=== PATIENT | male | born 1965 | race Caucasian/White ===

== ENCOUNTER 2021-12-09 09:08 | Inpatient (IN) ==
[~2021-12-09 09:08] MED LIST: CLORAZEPATE 3.75 MG TABLET PO PRN; DEXTROSE 10% 250 ML BAG IV PRN; GLUCAGON 1 MG VIAL IM PRN; MORPHINE 2 MG/1 ML SYRINGE IV PRN; NITROGLYCERIN SL 0.4 MG TABLET SL PRN
[2021-12-09 09:40] LABS: Basophils % 0.5 % (0.0-0.8); Eosinophils # 0.2 10*3/uL (0.0-0.87); Eosinophils % 3.4 % (0.00-10.9); Hematocrit 35.5 VOL% (42.0-52.0); Hemoglobin 11.8 GM/DL (14.0-18.0); Immature Granulocytes % 0.2 %; Immature Granulocytes Absolute 0.01 #; Lymphocytes % 31.2 % (21.2-54.2); Mean Corpuscular HGB Conc 33.2 GM/DL (32-36); Mean Corpuscular Volume 98.6 FL (87-102); Mean Platelet Volume 9.2 FL (9.6-12.0); Monocytes # 0.6 10*3/uL (0.11-0.8); Monocytes % 9.2 % (1.7-12.7); Neutrophils % 55.5 % (38.7-73.9); Platelet Count 290 T/CUMM (130-400); Red Cell Distribution Width 13.1 % (9.3-17.3); White Blood Count 6.4 T/CUMM (4-12)
[2021-12-09 10:08] LABS: Alanine Aminotransferase 49 U/L (16-61); Albumin 3.6 G/DL (3.4-5.0); Alkaline Phosphatase 72 U/L (45-117); Aspartate Amino Transferase 21 U/L (0-37); Bilirubin,Total < 0.39 MG/DL (0.20-1.00); Blood Urea Nitrogen 11 MG/DL (7-18); Calcium 9.6 MG/DL (8.5-10.1); Carbon Dioxide 31 MMOL/L (21-32); Chloride 106 MMOL/L (98-107); Glucose 82 MG/DL (74-106); Osmolality,Calculated 276.4 MOS/KG (273-304); Sodium 140 MMOL/L (136-145); Total Protein 7.6 G/DL (6.4-8.2)
[2021-12-09] MEDS ORDERED: oxyCODONE/ACETAMINOPHEN 5-325 MG TABLET PO PRN (10:30)
[2021-12-09] MEDS: CHLORHEXIDINE 0.12% ORAL RINSE 60 ML BOTTLE SWISH/SPIT SCH ×2 (10:31→20:08)
[2021-12-09] MEDS: CHLORHEXIDINE 4% SOLN 118 ML BOTTLE TOP SCH ×4 (11:29→21:13)
[2021-12-09] MEDS: SODIUM CHLORIDE 0.9% 1,000 ML IV SCH (11:30)
[2021-12-10] MEDS: CHLORHEXIDINE 4% SOLN 118 ML BOTTLE TOP SCH (04:40)
[2021-12-10] MEDS ORDERED: PAPAVERINE 60 MG/2 ML VIAL ONE (04:59)
[2021-12-10] MEDS ORDERED: VANCOMYCIN 1,000 MG VIAL ONE (05:00)
[2021-12-10] MEDS ORDERED: CEFUROXIME INJ 1,500 MG in SODIUM CHLORIDE 0.9% 100 ML IV ONE (05:00)
[2021-12-10] MEDS ORDERED: VANCOMYCIN 500 MG VIAL ONE (05:00)
[2021-12-10] MEDS ORDERED: FAMOTIDINE 20 MG TABLET PO ONE (05:30)
[2021-12-10] MEDS ORDERED: DIAZEPAM 5 MG TABLET PO ONE (05:30)
[2021-12-10] MEDS ORDERED: MIDAZOLAM 10 MG/2 ML VIAL ONE ×3 (06:09)
[2021-12-10] MEDS ORDERED: AMINOCAPROIC ACID 5,000 MG/20 ML VIAL ONE (06:09)
[2021-12-10] MEDS ORDERED: ETOMIDATE 40 MG/20 ML VIAL IV ONE (06:09)
[2021-12-10] MEDS ORDERED: LIDOCAINE 2% 5 ML VIAL ONE ×2 (06:09→10:44)
[2021-12-10] MEDS ORDERED: LACTATED RINGERS 1,000 ML IV ONE (06:10)
[2021-12-10] MEDS ORDERED: MINERAL OIL/PETROLATUM OPH OINT 3.5 GM TUBE ONE (06:10)
[2021-12-10] MEDS ORDERED: HEPARIN/NACL 0.9% 2 UNITS/ML 1,000 UNIT/500 ML BAG IV ONE (06:10)
[2021-12-10] MEDS ORDERED: VECURONIUM 10 MG VIAL IV ONE (06:10)
[2021-12-10] MEDS ORDERED: NITROGLYCERIN DRIP 50 MG/250 ML BOTTLE IV ONE (06:10)
[2021-12-10] MEDS ORDERED: SODIUM CHLORIDE 0.9% 1,000 ML IV ONE (06:10)
[2021-12-10] MEDS ORDERED: CALCIUM CHLORIDE 1,000 MG/10 ML VIAL IV ONE (06:10)
[2021-12-10] MEDS ORDERED: SEVOFLURANE 1 UNIT/15 MINUTE INH ONE (06:10)
[2021-12-10] MEDS ORDERED: SODIUM CHLORIDE 0.9% 250 ML IV ONE ×2 (06:10→06:11)
[2021-12-10] MEDS ORDERED: SUFentanil 250 MCG/5 ML AMP ONE (06:10)
[2021-12-10] MEDS ORDERED: PHENYLEPHRINE 10 MG/1 ML VIAL IV ONE (06:11)
[2021-12-10] MEDS ORDERED: ePHEDrine 50 MG/ML VIAL ONE (06:11)
[2021-12-10 07:30] LABS: ABG Base Excess 4.6 MMOL/L (-2.5-2.5); ABG HCO3 28.6 MMOL/L (20-26); ABG PCO2 46.1 MM HG (35-48); ABG PH 7.418 (7.35-7.45); ABG TCO2 26.8 MMOL/L (23-27); Glucose Heart Surgery 109 MG/DL (74-106); Hematocrit Heart Surgery 32.7 PERCENT (42-52); Hemoglobin Heart Surgery 10.6 G/DL (14.0-18.0); Ionized Calcium Arterial 1.18 MMOL/L (1.21-1.46); PCO2 Patient Temp Arterial 46.1 MMHG; PH Patient Temp Arterial 7.418; Patient Temperature 37 CELCIUS; Potassium Heart/CVR 3.9 MMOL/L (3.5-5.1); Sodium Heart/CVR 141 MMOL/L (135-145)
[2021-12-10 07:31] LABS: Bilirubin,Urine Negative (Negative); Blood, Urine Trace mg/dL (Negative); Glucose,Urine (UA) Negative (Negative); Ketones,Urine Negative (Negative); Nitrite,Urine Negative (Negative); Protein,Urine Negative (Negative); Urine Appearance Clear (Clear); Urine Color Yellow (Yellow); Urine Urobilinogen 0.2 eU/dL (<2.0); Urine pH 7.5 (4.5-8.0)
[2021-12-10 07:33] LABS: RBC,Urine 5 /HPF (0-4)
[2021-12-10] MEDS ORDERED: PHENYLEPHRINE DRIP 40 MG/250 ML PREMIX IV ONE (08:43)
[2021-12-10] MEDS ORDERED: NITROPRUSSIDE 50 MG/2 ML VIAL ONE ×2 (08:43→10:47)
[2021-12-10 08:57] LABS: Hematocrit Heart Surgery 19.6 PERCENT (42-52); PCO2 Patient Temp Venous 45.2 MM HG; PH Patient Temp Venous 7.407; PO2 Patient Temp Venous 43.8 MM HG; Potassium Heart/CVR 4.4 MMOL/L (3.5-5.1); VBG Base Excess 3.7 MEQ/L (0-4); VBG HCO3 27.6 MEQ/L (24-28); VBG Oxygen Saturation 80.7 %; VBG PCO2 49.8 MMHG (41-51); VBG PH 7.378; VBG PO2 50.2 MMHG (17-40); VBG Total CO2 28.1 MMOL/L
[2021-12-10 08:58] LABS: Hemoglobin Heart Surgery 6.2 G/DL (14.0-18.0)
[2021-12-10 09:26] LABS: Hematocrit Heart Surgery 22.1 PERCENT (42-52); Hemoglobin Heart Surgery 7.1 G/DL (14.0-18.0); PCO2 Patient Temp Venous 38.7 MM HG; PH Patient Temp Venous 7.459; PO2 Patient Temp Venous 34.8 MM HG; Potassium Heart/CVR 4.5 MMOL/L (3.5-5.1); VBG Base Excess 3.7 MEQ/L (0-4); VBG HCO3 27.5 MEQ/L (24-28); VBG Oxygen Saturation 74.5 %; VBG PCO2 44.7 MMHG (41-51); VBG PH 7.415; VBG PO2 42.9 MMHG (17-40); VBG Total CO2 27.2 MMOL/L
[2021-12-10] MEDS ORDERED: ESMOLOL 100 MG/10 ML VIAL IV ONE (09:46)
[2021-12-10 09:57] LABS: Hematocrit Heart Surgery 23.5 PERCENT (42-52); Hemoglobin Heart Surgery 7.5 G/DL (14.0-18.0); PCO2 Patient Temp Venous 38.7 MM HG; PH Patient Temp Venous 7.451; PO2 Patient Temp Venous 37.8 MM HG; Potassium Heart/CVR 4.9 MMOL/L (3.5-5.1); VBG Base Excess 2.9 MEQ/L (0-4); VBG HCO3 26.7 MEQ/L (24-28); VBG Oxygen Saturation 72.6 %; VBG PCO2 40.6 MMHG (41-51); VBG PH 7.436; VBG PO2 40.6 MMHG (17-40); VBG Total CO2 25.7 MMOL/L
[2021-12-10 10:32] LABS: ABG Base Excess 1.6 MMOL/L (-2.5-2.5); ABG HCO3 25.9 MMOL/L (20-26); ABG PCO2 43.3 MM HG (35-48); ABG PH 7.397 (7.35-7.45); ABG TCO2 24.8 MMOL/L (23-27); Glucose Heart Surgery 211 MG/DL (74-106); Hematocrit Heart Surgery 25.7 PERCENT (42-52); Hemoglobin Heart Surgery 8.3 G/DL (14.0-18.0); Ionized Calcium Arterial 1.25 MMOL/L (1.21-1.46); PCO2 Patient Temp Arterial 43.3 MMHG; PH Patient Temp Arterial 7.397; Patient Temperature 37 CELCIUS; Potassium Heart/CVR 4.3 MMOL/L (3.5-5.1); Sodium Heart/CVR 131 MMOL/L (135-145)
[2021-12-10] MEDS ORDERED: ALBUMIN 25% 25 GM/100 ML VIAL IV ONE (10:44)
[2021-12-10] MEDS ORDERED: methylPREDNISolone SOD SUC 1,000 MG/8 ML VIAL ONE (10:44)
[2021-12-10] MEDS ORDERED: DEXTROSE 5% KCL 20 MEQ 20 MEQ/1,000 ML BAG IV ONE (10:44)
[2021-12-10] MEDS ORDERED: MAGNESIUM SULFATE 5 GM/10 ML VIAL IV ONE (10:44)
[2021-12-10] MEDS ORDERED: MANNITOL 12.5 GM/50 ML VIAL IV ONE (10:45)
[2021-12-10] MEDS ORDERED: PROTAMINE SULFATE 250 MG/25 ML VIAL IV ONE (10:45)
[2021-12-10] MEDS ORDERED: HEPARIN 10,000 UNIT/10 ML VIAL ONE (10:45)
[2021-12-10] MEDS ORDERED: PROTAMINE SULFATE 50 MG/5 ML VIAL IV ONE (10:46)
[2021-12-10] MEDS ORDERED: FUROSEMIDE 20 MG/2 ML VIAL ONE (10:46)
[2021-12-10] MEDS ORDERED: SODIUM BICARBONATE 50 MEQ/50 ML VIAL IV ONE (10:46)
[2021-12-10] MEDS ORDERED: THROMBIN TOPICAL (RECOMBINANT) 5,000 UNIT VIAL TOP ONE (11:14)
[2021-12-10] MEDS ORDERED: ONDANSETRON 4 MG/2 ML VIAL IV PRN (11:15)
[2021-12-10] MEDS ORDERED: MAGNESIUM SULF RIDER 2 GM/50 ML PREMIX IV PRN (11:15)
[2021-12-10] MEDS ORDERED: DEXTROSE 10% 250 ML BAG IV PRN ×2 (11:15)
[2021-12-10] MEDS ORDERED: SODIUM CHLORIDE 0.45% 1,000 ML IV SCH ×2 (11:15)
[2021-12-10] MEDS ORDERED: MIDAZOLAM 2 MG/2 ML VIAL IV PRN (11:15)
[2021-12-10] MEDS ORDERED: VECURONIUM 10 MG VIAL IV PRN ×2 (11:15)
[2021-12-10] MEDS ORDERED: ACETAMINOPHEN 650 MG SUPP RECTAL PRN (11:15)
[2021-12-10] MEDS ORDERED: CALCIUM CHLORIDE 1,000 MG/10 ML SYRINGE IV PRN (11:15)
[2021-12-10] MEDS ORDERED: POTASSIUM CHLORIDE RIDER 20 MEQ/100 ML PREMIX IV PRN (11:15)
[2021-12-10] MEDS ORDERED: POTASSIUM CHLORIDE RIDER 10 MEQ/100 ML PREMIX IV PRN (11:15)
[2021-12-10] MEDS ORDERED: NITROPRUSSIDE 100 MG in DEXTROSE 5% 250 ML IV PRN (11:15)
[2021-12-10] MEDS ORDERED: MAGNESIUM SULF RIDER 4 GM/100 ML PREMIX IV PRN (11:15)
[2021-12-10] MEDS ORDERED: INSULIN REGULAR 100 UNIT/ML IV ONE (11:15)
[2021-12-10] MEDS ORDERED: MIDAZOLAM 10 MG/2 ML VIAL IV PRN ×2 (11:15→13:54)
[2021-12-10] MEDS ORDERED: PHENYLEPHRINE DRIP 40 MG/250 ML PREMIX IV PRN (11:15)
[2021-12-10] MEDS ORDERED: CHLORHEXIDINE 4% SOLN 118 ML BOTTLE TOP PRN (11:15)
[2021-12-10] MEDS ORDERED: LACTATED RINGERS 250 ML IV PRN (11:15)
[2021-12-10] MEDS ORDERED: INSULIN REGULAR DRIP 100 ML IV SCH (11:15)
[2021-12-10] MEDS ORDERED: ALBUMIN 5% 12.5 GM/250 ML VIAL IV PRN (11:15)
[2021-12-10] MEDS ORDERED: INSULIN REGULAR 100 UNIT/ML IV PRN (11:15)
[2021-12-10 12:12] LABS: Basophils % 0.2 % (0.0-0.8); Eosinophils # 0.1 10*3/uL (0.0-0.87); Eosinophils % 0.5 % (0.00-10.9); Hemoglobin 9.8 GM/DL (14.0-18.0); Immature Granulocytes % 0.7 %; Immature Granulocytes Absolute 0.09 #; Lymphocytes # 1.3 10*3/uL (1.4-4.0); Mean Corpuscular HGB Conc 33.8 GM/DL (32-36); Mean Platelet Volume 9.5 FL (9.6-12.0); Monocytes # 0.7 10*3/uL (0.11-0.8); Monocytes % 5.1 % (1.7-12.7); Neutrophils % 83.5 % (38.7-73.9); Platelet Count 251 T/CUMM (130-400); Red Blood Count 2.99 MC/CUMM (3.8-5.5); Red Cell Distribution Width 12.9 % (9.3-17.3); White Blood Count 12.8 T/CUMM (4-12)
[2021-12-10 12:14] LABS: ABG Base Excess 2.4 MMOL/L (-2.5-2.5); ABG HCO3 26.6 MMOL/L (20-26); ABG PCO2 42.4 MM HG (35-48); ABG PH 7.415 (7.35-7.45); ABG TCO2 24.8 MMOL/L (23-27); Glucose Heart Surgery 175 MG/DL (74-106); Hemoglobin Heart Surgery 9.7 G/DL (14.0-18.0); Potassium Heart/CVR 3.8 MMOL/L (3.5-5.1)
[2021-12-10 12:23] LABS: INR 1.1; PT Patient Result 11.8 SECS (10.5-12.0)
[2021-12-10] MEDS ORDERED: GLUCAGON 1 MG VIAL IM PRN (12:27)
[2021-12-10 12:35] LABS: CKMB % 6.08 %
[2021-12-10 12:37] LABS: Albumin 3.4 G/DL (3.4-5.0); Bilirubin,Total 0.6 MG/DL (0.20-1.00); Calcium 9.2 MG/DL (8.5-10.1); Osmolality,Calculated 274.1 MOS/KG (273-304); Potassium 3.8 MMOL/L (3.5-5.1); Total Protein 6.3 G/DL (6.4-8.2)
[2021-12-10 12:42] LABS: High Sensitive Troponin I* 2531.1 ng/L (0-78)
[2021-12-10] MEDS: LACTATED RINGERS 1,000 ML IV PRN ×3 (12:45→17:35)
[2021-12-10] MEDS: SODIUM CHLORIDE 0.9% 1,000 ML IV SCH (12:47)
[2021-12-10] MEDS: CHLORHEXIDINE 0.12% ORAL RINSE 60 ML BOTTLE SWISH/SPIT SCH ×2 (12:47→21:33)
[2021-12-10] MEDS ORDERED: DEXMEDETOMIDINE 200 MCG in SODIUM CHLORIDE 0.9% 48 ML IV PRN (12:58)
[2021-12-10 13:21] LABS: ABG Base Excess 2.4 MMOL/L (-2.5-2.5); ABG HCO3 26.6 MMOL/L (20-26); ABG Oxygen Saturation 99.9 % (95-100); ABG PCO2 42.5 MM HG (35-48); ABG PH 7.414 (7.35-7.45); Glucose Heart Surgery 169 MG/DL (74-106); Hematocrit Heart Surgery 28.2 PERCENT (42-52); Hemoglobin Heart Surgery 9.1 G/DL (14.0-18.0); Potassium Heart/CVR 4.2 MMOL/L (3.5-5.1)
[2021-12-10] MEDS: INSULIN REGULAR 100 UNIT/ML SUBCUT SCH ×3 (14:47→22:22)
[2021-12-10 15:16] LABS: ABG Base Excess 1.9 MMOL/L (-2.5-2.5); ABG HCO3 26.1 MMOL/L (20-26); ABG PCO2 43.8 MM HG (35-48); ABG PH 7.398 (7.35-7.45); ABG TCO2 24.6 MMOL/L (23-27); Glucose Heart Surgery 189 MG/DL (74-106); Hematocrit Heart Surgery 30.8 PERCENT (42-52); Potassium Heart/CVR 4.1 MMOL/L (3.5-5.1)
[2021-12-10] MEDS: MORPHINE 10 MG/1 ML VIAL IV PRN ×2 (16:58→19:44)
[2021-12-10 17:43] LABS: ABG Base Excess 0.6 MMOL/L (-2.5-2.5); ABG Oxygen Saturation 98.7 % (95-100); ABG PCO2 40.6 MM HG (35-48); ABG PH 7.404 (7.35-7.45); ABG TCO2 23.3 MMOL/L (23-27); Glucose Heart Surgery 191 MG/DL (74-106); Hemoglobin Heart Surgery 9.4 G/DL (14.0-18.0); Potassium Heart/CVR 4.3 MMOL/L (3.5-5.1)
[2021-12-10] MEDS: DEXMEDETOMIDINE 400 MCG in SODIUM CHLORIDE 0.9% 96 ML IV PRN ×2 (17:45→23:57)
[2021-12-10] MEDS: CEFUROXIME INJ 1,500 MG in SODIUM CHLORIDE 0.9% 100 ML IV SCH (18:39)
[2021-12-10 19:17] LABS: ABG Base Excess 0.4 MMOL/L (-2.5-2.5); ABG HCO3 24.8 MMOL/L (20-26); ABG Oxygen Saturation 98.4 % (95-100); ABG PCO2 40.1 MM HG (35-48); ABG PH 7.404 (7.35-7.45); ABG TCO2 22.9 MMOL/L (23-27); Glucose Heart Surgery 180 MG/DL (74-106); Hematocrit Heart Surgery 29.8 PERCENT (42-52); Hemoglobin Heart Surgery 9.6 G/DL (14.0-18.0); Potassium Heart/CVR 4.5 MMOL/L (3.5-5.1)
[2021-12-10 19:39] LABS: CKMB % 4.74 %
[2021-12-10] MEDS ORDERED: HYDROmorphone 1 MG/1 ML SYRINGE IV PRN (21:12)
[2021-12-10] MEDS ORDERED: FUROSEMIDE 40 MG/4 ML VIAL IV ONE (21:13)
[2021-12-10 22:04] LABS: ABG Base Excess -0.2 MMOL/L (-2.5-2.5); ABG HCO3 24.3 MMOL/L (20-26); ABG Oxygen Saturation 98.3 % (95-100); ABG PCO2 41.8 MM HG (35-48); ABG PH 7.383 (7.35-7.45); ABG TCO2 22.9 MMOL/L (23-27); Glucose Heart Surgery 164 MG/DL (74-106); Potassium Heart/CVR 4.2 MMOL/L (3.5-5.1)
[2021-12-11 00:02] LABS: ABG HCO3 25.3 MMOL/L (20-26); ABG Oxygen Saturation 97.8 % (95-100); ABG PCO2 41.5 MM HG (35-48); ABG PH 7.402 (7.35-7.45); ABG TCO2 23.4 MMOL/L (23-27); Glucose Heart Surgery 163 MG/DL (74-106); Hematocrit Heart Surgery 31.8 PERCENT (42-52); Hemoglobin Heart Surgery 10.3 G/DL (14.0-18.0); Potassium Heart/CVR 4.1 MMOL/L (3.5-5.1)
[2021-12-11 01:21] LABS: ABG Base Excess 1.2 MMOL/L (-2.5-2.5); ABG HCO3 25.5 MMOL/L (20-26); ABG PCO2 40.9 MM HG (35-48); ABG PO2 91.3 MM HG (80-95); ABG TCO2 23.5 MMOL/L (23-27); Glucose Heart Surgery 159 MG/DL (74-106); Hematocrit Heart Surgery 31.5 PERCENT (42-52); Hemoglobin Heart Surgery 10.2 G/DL (14.0-18.0); Potassium Heart/CVR 4.2 MMOL/L (3.5-5.1)
[2021-12-11] MEDS: INSULIN REGULAR 100 UNIT/ML SUBCUT SCH ×6 (02:11→23:35)
[2021-12-11 02:20] LABS: ABG Base Excess 0.9 MMOL/L (-2.5-2.5); ABG HCO3 25.2 MMOL/L (20-26); ABG Oxygen Saturation 95.4 % (95-100); ABG PCO2 39.9 MM HG (35-48); ABG PH 7.413 (7.35-7.45); ABG PO2 78.8 MM HG (80-95); ABG TCO2 23.1 MMOL/L (23-27); Glucose Heart Surgery 152 MG/DL (74-106); Hematocrit Heart Surgery 31.4 PERCENT (42-52); Hemoglobin Heart Surgery 10.2 G/DL (14.0-18.0); Potassium Heart/CVR 4.1 MMOL/L (3.5-5.1)
[2021-12-11 03:55] LABS: ABG Base Excess 0.9 MMOL/L (-2.5-2.5); ABG HCO3 25.2 MMOL/L (20-26); ABG Oxygen Saturation 95.6 % (95-100); ABG PCO2 40.6 MM HG (35-48); ABG PH 7.407 (7.35-7.45); ABG PO2 80.1 MM HG (80-95); ABG TCO2 23.4 MMOL/L (23-27); Glucose Heart Surgery 140 MG/DL (74-106); Hematocrit Heart Surgery 29.7 PERCENT (42-52); Hemoglobin Heart Surgery 9.6 G/DL (14.0-18.0)
[2021-12-11 03:59] LABS: Basophils % 0.1 % (0.0-0.8); Hematocrit 28.1 VOL% (42.0-52.0); Hemoglobin 9.5 GM/DL (14.0-18.0); Immature Granulocytes % 0.7 %; Immature Granulocytes Absolute 0.12 #; Lymphocytes # 0.9 10*3/uL (1.4-4.0); Lymphocytes % 5.7 % (21.2-54.2); Mean Corpuscular HGB Conc 33.8 GM/DL (32-36); Mean Corpuscular Volume 94.9 FL (87-102); Mean Platelet Volume 9.8 FL (9.6-12.0); Monocytes # 0.6 10*3/uL (0.11-0.8); Monocytes % 3.7 % (1.7-12.7); Neutrophils % 89.8 % (38.7-73.9); Platelet Count 211 T/CUMM (130-400); Red Blood Count 2.96 MC/CUMM (3.8-5.5); Red Cell Distribution Width 13.9 % (9.3-17.3); White Blood Count 16.2 T/CUMM (4-12)
[2021-12-11 04:23] LABS: CKMB % 2.75 %; High Sensitive Troponin I* 5587.6 ng/L (0-78)
[2021-12-11 04:31] LABS: Albumin 2.9 G/DL (3.4-5.0); Bilirubin,Direct 0.12 MG/DL (0.0-0.20); Bilirubin,Total 0.5 MG/DL (0.20-1.00); Calcium 7.9 MG/DL (8.5-10.1); Osmolality,Calculated 281.5 MOS/KG (273-304); Total Protein 5.8 G/DL (6.4-8.2)
[2021-12-11] MEDS: CEFUROXIME INJ 1,500 MG in SODIUM CHLORIDE 0.9% 100 ML IV SCH ×2 (06:32→20:41)
[2021-12-11] MEDS: MORPHINE 10 MG/1 ML VIAL IV PRN (07:30)
[2021-12-11] MEDS ORDERED: traZODone 50 MG TABLET PO SCH (09:00)
[2021-12-11] MEDS ORDERED: TADALAFIL 10 MG PO SCH (09:26)
[2021-12-11] MEDS ORDERED: SODIUM CHLOR 0.45% KCL 20 MEQ 20 MEQ/1,000 ML BAG IV SCH (09:26)
[2021-12-11] MEDS ORDERED: ALUMINUM/MAGNES/SIMETH MAX STR 30 ML UDCUP PO PRN (09:26)
[2021-12-11] MEDS ORDERED: MAGNESIUM SULF RIDER 2 GM/50 ML PREMIX IV PRN (09:26)
[2021-12-11] MEDS ORDERED: ACETAMINOPHEN 325 MG TABLET PO PRN (09:26)
[2021-12-11] MEDS ORDERED: MAGNESIUM HYDROXIDE SUSP 30 ML UDCUP PO PRN (09:26)
[2021-12-11] MEDS ORDERED: ONDANSETRON 4 MG/2 ML VIAL IV PRN (09:26)
[2021-12-11] MEDS ORDERED: MAGNESIUM SULF RIDER 4 GM/100 ML PREMIX IV PRN (09:26)
[2021-12-11] MEDS ORDERED: GLUCAGON 1 MG VIAL IM PRN (09:26)
[2021-12-11] MEDS ORDERED: LIDOCAINE 1.8% TOP SCH (09:26)
[2021-12-11] MEDS ORDERED: DEXTROSE 10% 250 ML BAG IV PRN (09:32)
[2021-12-11] MEDS: FERROUS SULFATE 325 MG TABLET PO SCH (10:00)
[2021-12-11] MEDS: DOCUSATE SODIUM 100 MG CAPSULE PO SCH (10:00)
[2021-12-11] MEDS: ASPIRIN EC 81 MG TABLET PO SCH (10:00)
[2021-12-11] MEDS: oxyCODONE/ACETAMINOPHEN 5-325 MG TABLET PO PRN ×2 (10:01→20:41)
[2021-12-11] MEDS: PANTOPRAZOLE 40 MG TABLET PO SCH (10:02)
[2021-12-11] MEDS ORDERED: oxyCODONE/ACETAMINOPHEN 5-325 MG TABLET PO ONE (12:24)
[2021-12-11] MEDS: CHLORHEXIDINE 0.12% ORAL RINSE 60 ML BOTTLE SWISH/SPIT SCH ×3 (12:38→20:42)
[2021-12-11] MEDS ORDERED: LIDOCAINE 5% PATCH TRANSDERM PRN (13:10)
[2021-12-11 13:26] LABS: CKMB % 1.56 %; High Sensitive Troponin I* 5251.8 ng/L (0-78)
[2021-12-11] MEDS: ASCORBIC ACID 500 MG TABLET PO SCH ×2 (15:09→20:41)
[2021-12-11] MEDS: MORPHINE 2 MG/1 ML SYRINGE IV PRN ×2 (16:30→21:50)
[2021-12-11] MEDS: ROSUVASTATIN 20 MG TABLET PO SCH (20:41)
[2021-12-12] MEDS: oxyCODONE/ACETAMINOPHEN 5-325 MG TABLET PO PRN ×4 (04:10→20:57)
[2021-12-12 04:48] LABS: Basophils % 0.1 % (0.0-0.8); Hematocrit 27.1 VOL% (42.0-52.0); Immature Granulocytes % 0.9 %; Immature Granulocytes Absolute 0.21 #; Lymphocytes # 1.1 10*3/uL (1.4-4.0); Lymphocytes % 4.9 % (21.2-54.2); Mean Corpuscular HGB Conc 33.2 GM/DL (32-36); Mean Corpuscular Volume 96.8 FL (87-102); Monocytes # 1.7 10*3/uL (0.11-0.8); Monocytes % 7.5 % (1.7-12.7); Neutrophils % 86.6 % (38.7-73.9); Platelet Count 210 T/CUMM (130-400); White Blood Count 22.3 T/CUMM (4-12)
[2021-12-12] MEDS: MORPHINE 2 MG/1 ML SYRINGE IV PRN (05:00)
[2021-12-12 05:09] LABS: Lymphocytes 6 % (20-55); Platelet Estimate Adequate; Total Cells Counted 100
[2021-12-12 05:10] LABS: Alanine Aminotransferase 31 U/L (16-61); Alkaline Phosphatase 44 U/L (45-117); Aspartate Amino Transferase 37 U/L (0-37); Bilirubin,Direct 0.12 MG/DL (0.0-0.20); Bilirubin,Indirect 0.3 MG/DL (0.0-1.0); Bilirubin,Total 0.4 MG/DL (0.20-1.00); Bilirubin,Total < 0.39 MG/DL (0.20-1.00); CKMB % 0.83 %; Calcium 8.1 MG/DL (8.5-10.1); Osmolality,Calculated 282.7 MOS/KG (273-304); Potassium 4.2 MMOL/L (3.5-5.1); Total Protein 6.1 G/DL (6.4-8.2)
[2021-12-12] MEDS: INSULIN REGULAR 100 UNIT/ML SUBCUT SCH ×6 (05:37→21:05)
[2021-12-12] MEDS ORDERED: FUROSEMIDE 40 MG/4 ML VIAL IV ONE (06:00)
[2021-12-12] MEDS ORDERED: amLODIPine 5 MG TABLET PO SCH (09:00)
[2021-12-12] MEDS: ASPIRIN EC 81 MG TABLET PO SCH (09:40)
[2021-12-12] MEDS: DOCUSATE SODIUM 100 MG CAPSULE PO SCH (09:40)
[2021-12-12] MEDS: ASCORBIC ACID 500 MG TABLET PO SCH ×2 (09:40→20:58)
[2021-12-12] MEDS: METOPROLOL TARTRATE 25 MG TABLET PO SCH ×2 (09:40→20:58)
[2021-12-12] MEDS: FERROUS SULFATE 325 MG TABLET PO SCH (09:40)
[2021-12-12] MEDS: POTASSIUM CHLORIDE 20 MEQ TABLET PO PRN (09:40)
[2021-12-12] MEDS: PANTOPRAZOLE 40 MG TABLET PO SCH (09:40)
[2021-12-12] MEDS: CHLORHEXIDINE 0.12% ORAL RINSE 60 ML BOTTLE SWISH/SPIT SCH ×2 (10:45→22:11)
[2021-12-12] MEDS: ROSUVASTATIN 20 MG TABLET PO SCH (20:58)
[2021-12-12] MEDS: ZALEPLON 5 MG CAPSULE PO PRN (20:58)
[2021-12-13] MEDS: oxyCODONE/ACETAMINOPHEN 5-325 MG TABLET PO PRN ×3 (06:09→21:31)
[2021-12-13 07:01] LABS: Basophils % 0.1 % (0.0-0.8); Eosinophils % 0.1 % (0.00-10.9); Hematocrit 26.9 VOL% (42.0-52.0); Hemoglobin 8.7 GM/DL (14.0-18.0); Immature Granulocytes % 0.4 %; Immature Granulocytes Absolute 0.05 #; Lymphocytes # 2.5 10*3/uL (1.4-4.0); Lymphocytes % 20.4 % (21.2-54.2); Mean Corpuscular HGB Conc 32.3 GM/DL (32-36); Mean Corpuscular Volume 98.2 FL (87-102); Mean Platelet Volume 10.3 FL (9.6-12.0); Monocytes # 1.2 10*3/uL (0.11-0.8); Monocytes % 9.4 % (1.7-12.7); Neutrophils % 69.6 % (38.7-73.9); Platelet Count 191 T/CUMM (130-400); Red Blood Count 2.74 MC/CUMM (3.8-5.5); Red Cell Distribution Width 14.1 % (9.3-17.3); White Blood Count 12.4 T/CUMM (4-12)
[2021-12-13 07:24] LABS: Albumin 2.7 G/DL (3.4-5.0); Bilirubin,Direct 0.1 MG/DL (0.0-0.20); Bilirubin,Total 0.4 MG/DL (0.20-1.00); Osmolality,Calculated 285.3 MOS/KG (273-304); Potassium 3.7 MMOL/L (3.5-5.1); Total Protein 5.6 G/DL (6.4-8.2)
[2021-12-13 07:28] LABS: Alanine Aminotransferase 27 U/L (16-61); Albumin 2.6 G/DL (3.4-5.0); Alkaline Phosphatase 45 U/L (45-117); Aspartate Amino Transferase 26 U/L (0-37); Bilirubin,Indirect 0.3 MG/DL (0.0-1.0); Total Protein 6.1 G/DL (6.4-8.2)
[2021-12-13 07:32] LABS: Calcium 8.1 MG/DL (8.5-10.1); Osmolality,Calculated 285.3 MOS/KG (273-304); Potassium 3.6 MMOL/L (3.5-5.1)
[2021-12-13] MEDS: INSULIN REGULAR 100 UNIT/ML SUBCUT SCH (07:47)
[2021-12-13] MEDS: DOCUSATE SODIUM 100 MG CAPSULE PO SCH (09:34)
[2021-12-13] MEDS: PANTOPRAZOLE 40 MG TABLET PO SCH (09:34)
[2021-12-13] MEDS: FERROUS SULFATE 325 MG TABLET PO SCH (09:34)
[2021-12-13] MEDS: ASPIRIN EC 81 MG TABLET PO SCH (09:34)
[2021-12-13] MEDS: CHLORHEXIDINE 0.12% ORAL RINSE 60 ML BOTTLE SWISH/SPIT SCH ×2 (09:34→21:32)
[2021-12-13] MEDS: METOPROLOL TARTRATE 25 MG TABLET PO SCH ×2 (09:34→21:31)
[2021-12-13] MEDS: POTASSIUM CHLORIDE 20 MEQ TABLET PO PRN (09:34)
[2021-12-13] MEDS: ASCORBIC ACID 500 MG TABLET PO SCH ×2 (09:34→21:31)
[2021-12-13] MEDS ORDERED: LACTULOSE 20 GM/30 ML UDCUP PO PRN (17:02)
[2021-12-13] MEDS: ROSUVASTATIN 20 MG TABLET PO SCH (21:31)
[2021-12-13] MEDS: ZALEPLON 5 MG CAPSULE PO PRN (21:31)
[2021-12-14] MEDS: oxyCODONE/ACETAMINOPHEN 5-325 MG TABLET PO PRN ×2 (03:52→08:24)
[2021-12-14 05:52] LABS: Basophils % 0.2 % (0.0-0.8); Eosinophils % 0.2 % (0.00-10.9); Hematocrit 27.3 VOL% (42.0-52.0); Hemoglobin 8.8 GM/DL (14.0-18.0); Immature Granulocytes % 0.3 %; Immature Granulocytes Absolute 0.03 #; Lymphocytes % 19.7 % (21.2-54.2); Mean Corpuscular HGB Conc 32.2 GM/DL (32-36); Mean Corpuscular Volume 99.3 FL (87-102); Mean Platelet Volume 10.1 FL (9.6-12.0); Monocytes # 0.8 10*3/uL (0.11-0.8); Monocytes % 8.2 % (1.7-12.7); Neutrophils % 71.4 % (38.7-73.9); Platelet Count 208 T/CUMM (130-400); Red Blood Count 2.75 MC/CUMM (3.8-5.5); Red Cell Distribution Width 13.4 % (9.3-17.3); White Blood Count 10.3 T/CUMM (4-12)
[2021-12-14 05:59] LABS: Calcium 8.3 MG/DL (8.5-10.1); Osmolality,Calculated 275.8 MOS/KG (273-304); Potassium 3.6 MMOL/L (3.5-5.1)
[2021-12-14] MEDS: PANTOPRAZOLE 40 MG TABLET PO SCH (08:22)
[2021-12-14] MEDS: FERROUS SULFATE 325 MG TABLET PO SCH (08:22)
[2021-12-14] MEDS: ASCORBIC ACID 500 MG TABLET PO SCH (08:22)
[2021-12-14] MEDS: ASPIRIN EC 81 MG TABLET PO SCH (08:23)
[2021-12-14 08:48] VITALS: BP 155/89
[2021-12-14] MEDS ORDERED: METOPROLOL TARTRATE 25 MG TABLET PO SCH (09:00)
[2021-12-14] MEDS: DOCUSATE SODIUM 100 MG CAPSULE PO SCH (10:32)
== END 2021-12-14 11:45 | disposition home health service (06) | DRG 236 ==
LOC: N.TELES 09:08 → N.CVR 12-10 11:04 → N.TELES 12-11 18:02